=== PATIENT | female | born 1960 | race Caucasian/White ===

== ENCOUNTER 2024-08-15 19:14 | Emergency (ER) | payer SELFPAY ==
[~2024-08-15] VITALS: Ht 154.9 cm; Wt 67.0 kg
[2024-08-15 19:55] VITALS: TEMP 36.7; O2SAT 99
[2024-08-15 20:31] LABS: CLARITY URINE CLEAR (CLEAR); COLOR URINE YELLOW (YELLOW); GLUCOSE URINE NEGATIVE (NEGATIVE); KETONES URINE NEGATIVE (NEGATIVE); OCCULT BLOOD URINE NEGATIVE (NEGATIVE); PH URINE 8.0 (4.5-8.0); PROTEIN URINE NEGATIVE (NEGATIVE); SPECIFIC GRAVITY URINE 1.007 (1.005-1.030)
[2024-08-15 20:32] LABS: LEUKOCYTE ESTERASE URINE NEGATIVE (NEGATIVE); NITRITE URINE NEGATIVE (NEGATIVE); UROBILINOGEN URINE 0.2 E.U./dL (0.2-1.0)
[2024-08-15 21:01] LABS: BASOPHILS % 0.8 % (0.0-2.0); EOSINOPHILS % 0.2 % (0.0-5.0); HEMATOCRIT. 41.3 % (36.0-48.0); HEMOGLOBIN. 13.8 g/dL (12.0-16.0); LYMPHOCYTES % 17.0 % (20.0-50.0); MEAN PLATELET VOLUME 8.1 fl (7.4-10.4); MONOCYTES % 4.7 % (2.0-8.0); NEUTROPHILS % 77.3 % (40.0-76.0); PLATELET 262 x1000/uL (130-400); RED BLOOD CELL COUNT 4.55 mill/uL (4.2-5.4); RED CELL DISTRIBUTION WIDTH 13.6 % (11.6-14.6)
[2024-08-15 21:08] LABS: INR 0.9
[2024-08-15 21:13] LABS: CREATININE 0.7 mg/dL (0.6-1.0); UREA NITROGEN BLOOD 13 mg/dL (9-23)
[2024-08-15 21:14] LABS: TROPONIN I HIGH SENSITIVITY < 4 ng/L (3.0-34)
[2024-08-15 21:53] LABS: T4 FREE 0.76 ng/dL (0.89-1.76)
[2024-08-15 21:59] LABS: PHOSPHORUS 3.1 mg/dL (2.5-4.9)
[2024-08-16] MEDS: IBUPROFEN 400MG TABLET PO ONE (01:28)
[2024-08-16] MEDS: ACETAMINOPHEN 325MG TABLET PO ONE (01:29)
[2024-08-16 01:30] VITALS: BP 159/81; PULSE 79; RESP 16; O2SAT 98
== END 2024-08-16 01:39 | disposition home or self-care (01) ==
LOC: ER 19:14
DX: F41.0 Panic disorder [episodic paroxysmal anxiety] (principal); E03.9 Hypothyroidism, unspecified; Z88.1 Allergy status to other antibiotic agents; Z79.899 Other long term (current) drug therapy
CPT/HCPCS: 36415; 71045; 80048; 81003; 83735; 83880; 84100; 84439; 84443; 84481; 84484; 85025; 93005; 99285